=== PATIENT | male | born 1940 | race Hispanic/Latino ===

== ENCOUNTER 2020-05-03 08:56 | Outpatient (AMBR) | payer MEDICARE, MEDICAID, SELFPAY ==
--- NOTE | 2020-05-03 19:40 | PTNOTE_ITS ---
PT OP Initial Eval Patient Information Visit Reasons: knee pain Medical Diagnosis: power W/C eval, polyarthritis Start of Care: 05/03/20 Initial Assessment Subjective Pt is 79 yr old male who reports severe R knee pain and pain radiating down from R L/S down the posterior thigh that makes it hard to walk sometimes. He says he has good UE strength but can't walk very far. He wants a W/C to use and home and thinks that he could propel a manual W/C. PMH: CVA with R hemiparesis per , DM, HTN Pt goal: to get a W/C in order to move around the house better when the R LE hurts. Objective R knee AROM: Flexion: 100 deg Extension: -10 deg with pain Gait: slow and decreased step length Sit to stand transfers: independent [employer] strength: L>R but able to grasp objects B Assessment Pt presents ambulating without assistive device today from car to clinic and PT recommends he use a FWW at home along with a manual W/C. He was able to propel himself around the clinic in a manual W/C today without problems, stand up and walk out of the clinic. PT doesn't think he needs a power chair at this time due to his functional mobility with gait and ability to use manual W/C. He would benefit from a FWW for balance as he has poor SL stance balance. Pt agrees with this plan and is willing to use a manual W/C. Short Term and Rn Case Manager Goals W/C evaluation Treatment Plan W/C evaluation Certification Dates: 05/03/20 to 06/02/21 Office Procedures PT Procedures PT Date of Service: 05/03/20 OP PT Eval Mod Complex 30 minutes: Yes
== END 2020-05-12 23:59 | disposition home or self-care (01) ==
PROVIDERS: PCP Family Medicine; Referring Provider Family Medicine; Visit Provider Family Medicine
DX: M15.9 Polyosteoarthritis, unspecified (principal); M25.561 Pain in right knee; E11.9 Type 2 diabetes mellitus without complications; I10 Essential (primary) hypertension; I69.351 Hemiplegia and hemiparesis following cerebral infarction affecting right dominant side
CPT/HCPCS: 97162